=== PATIENT | female | born 1980 ===

== ENCOUNTER 2017-02-07 20:44 | Emergency (ER) | payer OTHER ==
[2017-02-07 21:03] VITALS: BP 127/77; PULSE 88; RESP 18; TEMP 98.8; O2SAT 98
--- NOTE | 2017-02-07 21:49 | ED PDOC ---
Lower Extremity Pain/Injury Time Seen by Provider: 02/07/17 21:14 Chief Complaint (Nursing): Lower Extremity Problem/Injury Chief Complaint (Provider): Laceration to LLE History Per: Patient History/Exam Limitations: no limitations Onset/Duration Of Symptoms: Days (x1) Current Symptoms Are (Timing): Still Present Severity: Mild Additional Complaint(s): Patient is a 36 year old female presenting to the ED complaining of laceration to the left leg since yesterday. Patient states that glass shattered and struck her leg causing a laceration. Patient is unknown about her tetanus status. PMD: Victor Manuel Brooke Past Medical History Reviewed: Historical Data, Nursing Documentation, Vital Signs Vital Signs: Last Vital Signs Temp 98.8 F 02/07/17 21:00 Pulse 88 02/07/17 21:00 Resp 18 02/07/17 21:00 BP 127/77 02/07/17 21:00 Pulse Ox 98 02/07/17 21:00 - Medical History PMH: No Chronic Diseases - Family History Family History: States: No Known Family Hx - Allergies Allergies/Adverse Reactions: Allergies Allergy/AdvReac Type Severity Reaction Status Date / Time No Known Allergies Allergy Verified 02/07/17 21:00 Review of Systems ROS Statement: Except As Marked, All Systems Reviewed And Found Negative Constitutional: Negative for: Fever Musculoskeletal: Positive for: Other (laceration to left leg) Physical Exam - Reviewed Nursing Documentation Reviewed: Yes Vital Signs Reviewed: Yes - Physical Exam Appears: Positive for: Well, Non-toxic, No Acute Distress Head Exam: Positive for: ATRAUMATIC, NORMAL INSPECTION, NORMOCEPHALIC Skin: Positive for: Warm. Negative for: Normal Color (2cm curvilinear laceration, left calf, no bleeding ) Eye Exam: Positive for: Normal appearance ENT: Positive for: Normal ENT Inspection Neck: Positive for: Normal Respiratory: Negative for: Accessory Muscle Use Back: Positive for: Normal Inspection Extremity: Positive for: Normal ROM Neurologic/Psych: Positive for: Alert, Oriented - ECG O2 Sat by Pulse Oximetry: 98 Medical Decision Making Medical Decision Making: No FB seen on x-ray. Wound irrigated. Antibiotic ointment and dressing applied. Disposition - Clinical Impression Clinical Impression: Laceration of calf, Tetanus toxoid vaccination administered at current visit - Patient ED Disposition Is Patient to be Admitted: No Counseled Patient/Family Regarding: Diagnosis, Need For Followup - Disposition Referrals: [facility] [Outside] Disposition: Routine/Home Disposition Time: 22:36 Condition: GOOD Additional Instructions: Keep would clean and dry with antibiotic ointment. Instructions: Abrasion (ED)
[2017-02-07] MEDS ORDERED: TDAP Vaccine 0.5 mL Syr IM ONE (21:59)
--- NOTE | 2017-02-08 12:08 | RAD ---
PROCEDURE: Radiographs of the left tibia and fibula. HISTORY: calf laceration, glass, r/o FB COMPARISON: None available. TECHNIQUE: Frontal and lateral views obtained. FINDINGS: BONES: Bone alignment and mineralization are normal. There is an osteochondroma arising from the medial cortex of the proximal metaphysis of tibia. There is no acute fracture or bone destruction. JOINT SPACES: The joint spaces are preserved. OTHER FINDINGS: The periarticular soft tissues are normal. No evidence of radiopaque foreign body. IMPRESSION: 1. No evidence of radiopaque foreign body. 2. Small osteochondroma arising from the medial cortex of the proximal metaphysis of tibia.
== END 2017-02-07 23:01 | disposition home or self-care (01) ==
LOC: H.ER 20:44
DX: S81.819A Laceration without foreign body, unspecified lower leg, initial encounter (principal); W25.XXXA Contact with sharp glass, initial encounter; Y92.89 Other specified places as the place of occurrence of the external cause